=== PATIENT | male | born 1995 | race Caucasian/White ===

== ENCOUNTER → 2019-06-15 | Outpatient (CLI) | payer OTHER | LOC: MHCPAIN 15:27 | DX: M53.3 Sacrococcygeal disorders, not elsewhere classified (principal); M47.27 Other spondylosis with radiculopathy, lumbosacral region | CPT/HCPCS: G0463 ==

== ENCOUNTER → 2019-07-02 | Outpatient (CLI) | payer OTHER | LOC: MHCPAIN 07:52 | DX: M54.5 Low back pain (principal); M53.3 Sacrococcygeal disorders, not elsewhere classified | CPT/HCPCS: J1100; Q9967 ==